=== PATIENT | female | born 1990 | race Caucasian/White ===

== ENCOUNTER 2019-07-04 10:01 | Emergency (ER) | payer BC, SELFPAY ==
--- NOTE | 2019-07-04 10:28 | ED.GENADULT ---
HPI - General Adult General Chief complaint: Upper Respiratory Infection Stated complaint: body aches/fever/sore throat Time Seen by Provider: 07/04/19 10:29 Source: patient Mode of arrival: ambulatory Limitations: no limitations History of Present Illness HPI narrative: 28-year-old female patient presents to the [facility] with complaints of cold symptoms that started yesterday. Patient states she has had body aches, fevers, runny nose, slight cough and just overall feeling very tired. Patient states she has had some nausea but she is currently 6 weeks . Patient states that she has not gotten a flu shot this year and has not yet met with her OB for her first appointment yet. Patient denies any vomiting or abdominal pain. Related Data Home Medications Medication Instructions Recorded Confirmed escitalopram oxalate 10 mg PO DAILY 07/04/19 07/04/19 vit-iron fum-folic ac 1 tablet PO DAILY 07/04/19 07/04/19 [ Vitamin] Allergies Allergy/AdvReac Type Severity Reaction Status Date / Time No Known Allergies Allergy Verified 07/04/19 10:27 Review of Systems Review of Systems: Narrative: CONSTITUTIONAL: Positive fever, body aches, chills, and sweats. EYES: Denies visual changes, redness, or discharge. ENT: Positive rhinorrhea, congestion, sore throat, denies otalgia. CARDIOVASCULAR: Denies chest pain, palpitations, or edema. RESPIRATORY: Positive cough, denies dyspnea. GASTROINTESTINAL: Denies abdominal pain, positive nausea, denies vomiting, or diarrhea. GENITOURINARY: Denies dysuria or hematuria. SKIN: Denies rash or itching. MUSCULOSKELETAL: Denies back pain, joint pain, or myalgia. NEUROLOGIC: Positive headache, denies numbness, or weakness. PSYCHIATRIC: Denies anxiety or depression. PMFSH Comments At the time of my signature I agree with nursing past medical history, surgical, social, and family history. There is no relevant family history pertinent to the presenting complaint. Exam Narrative: Exam Narrative: GENERAL: ill-appearing, well-nourished, and in no acute distress. HEAD: Normocephalic, atraumatic. No tenderness noted to frontal maxillary sinuses on palpation. EYES: PERRLA and EOMI. ENT: Nares with erythema and edema noted bilaterally, patent, no rhinorrhea or epistaxis. Mucous membranes moist. NECK: Supple. No lymphadenopathy CHEST: Clear to auscultation. No respiratory distress. HEART: Regular rate and rhythm. No murmur heard. Normal peripheral pulses. ABDOMEN: Soft, nontender, nondistended, normal active bowel sounds. EXTREMITIES: Normal range of motion. No edema. SKIN: Warm, dry, no rash. NEURO: No focal deficits. Alert and oriented x3. Course Vital Signs Vital signs: Vital Signs Temperature 37.6 C 07/04/19 10:29 Pulse Rate 116 H 07/04/19 10:29 Respiratory Rate 07/04/19 10:29 Blood Pressure 124/75 07/04/19 10:29 Pulse Oximetry 99 07/04/19 10:29 Temperature 37.6 C 07/04/19 10:29 Pulse Rate 116 H 07/04/19 10:29 Respiratory Rate 07/04/19 10:29 Blood Pressure 124/75 07/04/19 10:29 Pulse Oximetry 99 07/04/19 10:29 Vital signs reviewed. Medical Decision Making Differential Diagnosis Differential Diagnosis: Differential diagnosis: Allergic rhinitis, chronic sinusitis, tonsillitis, acute sinusitis, infectious mononucleosis, seasonal influenza, pertussis, diphtheria, meningococcal disease, viral syndrome, viral bronchitis, RSV. Notify patient that her influenza and strep are both negative today. Discussed with her that she can take [id number] Tylenol for her fevers aches and pains. Discussed with patient and did provide patient with a list of safe [id number] medications that she can try for her symptoms. Discussed with patient if she develops vomiting, abdominal pain or severe diarrhea that she would need to go to the ER for further evaluation and treatment. Patient verbalized understanding denies any other question
[2019-07-04 10:29] VITALS: BP 124/75; PULSE 116; RESP 20; TEMP 37.6; O2SAT 99
== END 2019-07-04 10:57 | disposition home or self-care (01) ==
PROVIDERS: Emergency Provider Nurse Practitioner Family
DX: O99.511 Diseases of the respiratory system complicating pregnancy, first trimester (principal); J06.9 Acute upper respiratory infection, unspecified; O99.89 Other specified diseases and conditions complicating pregnancy, childbirth and the puerperium; R05 Cough; Z3A.01 Less than 8 weeks gestation of pregnancy; O99.341 Other mental disorders complicating pregnancy, first trimester; F41.9 Anxiety disorder, unspecified; F32.9 Major depressive disorder, single episode, unspecified
CPT/HCPCS: 87081; 87804; 87880; 99213; G0463

== ENCOUNTER 2020-03-06 05:55 | Inpatient (IN) | payer BC, SELFPAY ==
[2020-03-06] VITALS (152 sets, daily range): BP systolic 76–196; BP diastolic 18–157; PULSE 47–292; RESP 16–18; TEMP 36.7–37.6; O2SAT 79–100; BMI 38.7
[2020-03-06] MEDS: LACTATED RINGERS 1,000 ML 125 ML IV CONT ×2 (06:55→10:00)
[2020-03-06] MEDS: ONDANSETRON INJ 4 MG/2 ML VIAL IV PUSH (07:02)
--- NOTE | 2020-03-06 07:15 | LDADM ---
This patient, Beth Calderón, was admitted to Labor/Delivery/Recovery 103 on 03/06/20 at 0605. Plans for labor, pain management and were discussed with patient. Patient/family oriented to hospital policies and general routines including ID bracelet, bed and alarms, visiting hours, pain management, procedures, bathroom and other care routines, personal items, smoking policy, room service/diet and guest tray routines, infant security routines, and visiting hours. Patient/Family are encouraged to report perceived risks to care and to ask questions if they do not understand what they are told or what they should do. See OBIX for further documentation.
[2020-03-06 07:26] LABS: Basophils Percent Auto 0.3 % (0.2-1.2); Eosinophils Absolute Auto 0.2 K/mm3 (0-0.3); Eosinophils Percent Auto 1.3 % (0-4.4); Hematocrit 32.9 % (37.0-47.0); Hemoglobin 10.8 g/dL (12.0-15.0); Immature Granulocyte Absolute 0.06 K/mm3 (0.00-0.031); Immature Granulocyte Percent A 0.5 % (0-0.5); Lymphocytes Absolute Auto 2.88 K/mm3 (0.9-3.2); Lymphocytes Percent Auto 24.1 % (18.3-44.2); Mean Corpuscular HGB Conc 32.8 g/dl (32-36); Mean Corpuscular Volume 79.3 fl (80-100); Mean Platelet Volume 9.9 fl (7.4-10.4); Monocytes Absolute Auto 0.6 K/mm3 (0.1-0.6); Monocytes Percent Auto 5.3 % (2.6-8.5); Neutrophils Absolute Auto 8.2 K/mm3 (1.3-6.7); Neutrophils Percent Auto 68.5 % (45.5-73.1); Platelet Count Result 280 k/mm3 (150-375); Red Blood Count 4.15 M/mm3 (4.2-5.4); Red Cell Distribution Width 14.6 % (11.5-14.5)
[2020-03-06] MEDS: OXYTOCIN 30 UNITS/NS 500 ML 30 UNITS/500 ML BAG IV CONT (07:30)
--- NOTE | 2020-03-06 07:35 | WPDOBADMIT ---
Obstetrics - Admit Note Admission Note: record reviewed. No pertinent additions to the history and/or any subsequent changes in the physical findings that are not consistent with the expected course of the were found. MIL at 41 weeks for term gestation, SVE 3cm, attempt at arom, tiny amount of fluid, will monitor Additions to the history and/or subsequent changes in the physical findings follow. None.
[2020-03-06 09:23] LABS: Rapid Plasma Reagin Non-Reactive (NonReactive)
--- NOTE | 2020-03-06 10:34 | P.PNAN_ITS ---
Anes - Eval Pre Procedure Procedure: Labor Epidural Date/Time: 03/06/20 10:34 Surgeon: Samy Preop Diagnosis: Labor Pain Pre Op Diagnosis: Induction of Labor Patient Data Age: 29 Gender: F Height: 5 ft 5 in Weight: 105.5 kg Last Vital Signs Temp 37.1 C 03/06/20 10:30 Pulse 89 03/06/20 10:33 Resp 18 03/06/20 07:30 BP 119/73 03/06/20 10:33 Pulse Ox 100 03/06/20 10:29 Allergies Allergy/AdvReac Type Severity Reaction Status Date / Time No Known Allergies Allergy Verified 07/04/19 10:27 Home Medications Medication Instructions Recorded Confirmed Type vit-iron fum-folic ac 1 tablet PO DAILY 07/04/19 03/06/20 History [ Vitamin] Laboratory Tests 03/06/20 03/06/20 03/06/20 07:14 07:14 07:14 WBC 12.0 K/mm3 H K/mm3 (4.5-10.0) RBC 4.15 M/mm3 L M/mm3 (4.2-5.4) Hgb 10.8 g/dL L g/dL (12.0-15.0) Hct 32.9 % L % (37.0-47.0) MCV 79.3 fl L fl (80-100) MCH 26.0 pg pg (26-34) MCHC 32.8 g/dl g/dl (32-36) RDW 14.6 % H % (11.5-14.5) Plt Count 280 k/mm3 k/mm3 (150-375) MPV 9.9 fl fl (7.4-10.4) Immature Gran % (Auto) 0.5 % % (0-0.5) Neut % (Auto) 68.5 % % (45.5-73.1) Lymph % (Auto) 24.1 % % (18.3-44.2) Ferry % (Auto) 5.3 % % (2.6-8.5) Eos % (Auto) 1.3 % % (0-4.4) Baso % (Auto) 0.3 % % (0.2-1.2) Lymph # (Auto) 2.88 K/mm3 K/mm3 (0.9-3.2) Ferry # (Auto) 0.6 K/mm3 K/mm3 (0.1-0.6) Eos # (Auto) 0.2 K/mm3 K/mm3 (0-0.3) Baso # (Auto) 0.0 K/mm3 K/mm3 (0.0-0.1) Abs Immat Gran (auto) 0.06 K/mm3 H K/mm3 (0.00-0.031) Absolute Neuts (auto) 8.2 K/mm3 H K/mm3 (1.3-6.7) Absolute Nucleated RBC 0.0 K/mm3 K/mm3 (0.0-0.012) Nucleated RBC % 0.0 % % (0.0-0.2) RPR Non-reactive (NonReactive) Blood Type O Positive Antibody Screen Negative : gestational age (AMILCAR 02/28/20) Patient hx anesthesia problems: none Family hx anesthesia problems: none PMFSH Family History Family History Other No pertinent family history in first degree relatives Social History Social History Smoking status: Never smoker Second hand tobacco smoke exposure: No Substance use: never Spiritual care concerns: No Exam Day of Procedure 03/06/20 10:34 Patient weight: obese Heart: regular rate and rhythm Lungs: normal air movement Airway: Mallampati scale class II Neurological: alert and oriented
[2020-03-06] MEDS: PHENYLEPHRINE 1,000 MCG/10 ML SYRINGE 100 MCG IV PUSH (11:52)
--- NOTE | 2020-03-06 12:23 | PM.OBPNLAB ---
Pain Control Date/time seen: 03/06/20 12:23 Pain control: epidural Pelvic Exam Dilation (cm): 6 Effacement (%): 70 station: -2 Amniotic membrane status: Ruptured
--- NOTE | 2020-03-06 14:01 | PM.OBPRVD ---
OB - Delivery Note Procedure Delivery date: 03/06/20 Procedure: Vaginal . events: Labor Induction Intrapartal events: None Induction method: AROM and per pitocin protocol Delivery monitor: external FHT and external uterine Route of delivery: Episiotomy description: None Laceration Description: None Specimen: No Estimated blood loss (mL): 35 Anesthesia type: Epidural Disposition: other () [place] Baby Date of : 03/06/20 Time of : 13:50 Weeks of gestation at delivery: 41 gender: Female Weight (pounds): 7 Weight (ounces): 7 presentation: vertex position: Left Occiput Anterior Placenta delivery description: Spontaneous cord vessel description: 3 Vessels, Nuchal Cord, True Knot (x2), Clamped/Cut and Delayed Cord Clamping score one minute: 9 score five minutes: 9 Narrative: Mother and baby in stable condition and skin to skin.
[2020-03-06] MEDS: OXYTOCIN 30 UNITS/NS 500 ML 30 UNITS/500 ML BAG 125 UNITS IV CONT (14:38)
--- NOTE | 2020-03-06 16:40 | OBPPTRN ---
Patient transferred to post room #284 via wheel chair( ). Support person present. Oriented to unit, room, information board, rooming in, admission packet and security measures. Patient verbalizes understanding.
[2020-03-06] MEDS: IBUPROFEN 600 MG TABLET PO ×2 (16:50→22:56)
[2020-03-06] MEDS: ACETAMINOPHEN 325 MG TABLET 650 MG PO (19:08)
[2020-03-07] MEDS: ACETAMINOPHEN 325 MG TABLET 650 MG PO ×3 (01:35→16:27)
[2020-03-07 05:55] LABS: Hematocrit 31.4 % (37.0-47.0); Hemoglobin 10.1 g/dL (12.0-15.0)
--- NOTE | 2020-03-07 07:27 | PM.OBPNVD ---
OB - PN: Subj Subjective Date/time seen: 03/07/20 07:27 Patient comments: no complaints baby status: doing well OB - PN: Obj Data Labs CBC & Chem 7: 03/07/20 04:45 Labs: Laboratory Results - last 24 hr 03/06/20 03/06/20 03/06/20 07:14 07:14 07:14 WBC 12.0 H RBC 4.15 L Hgb 10.8 L Hct 32.9 L MCV 79.3 L MCH 26.0 MCHC 32.8 RDW 14.6 H Plt Count 280 MPV 9.9 Immature Gran % (Auto) 0.5 Neut % (Auto) 68.5 Lymph % (Auto) 24.1 Humphreys % (Auto) 5.3 Eos % (Auto) 1.3 Baso % (Auto) 0.3 Lymph # (Auto) 2.88 Humphreys # (Auto) 0.6 Eos # (Auto) 0.2 Baso # (Auto) 0.0 Abs Immat Gran (auto) 0.06 H Absolute Neuts (auto) 8.2 H Absolute Nucleated RBC 0.0 Nucleated RBC % 0.0 RPR Non-reactive Blood Type O Positive Antibody Screen Negative 03/07/20 04:45 WBC RBC Hgb 10.1 L Hct 31.4 L MCV MCH MCHC RDW Plt Count MPV Immature Gran % (Auto) Neut % (Auto) Lymph % (Auto) Humphreys % (Auto) Eos % (Auto) Baso % (Auto) Lymph # (Auto) Humphreys # (Auto) Eos # (Auto) Baso # (Auto) Abs Immat Gran (auto) Absolute Neuts (auto) Absolute Nucleated RBC Nucleated RBC % RPR Blood Type Antibody Screen OB - PN A/P Plan day: 1 Plan: discharge home Time Spent With Patient Time: Total time spent is greater than 50% in coordination of care (as documented) at patient's floor/unit and/or counseling patient: Review of Systems Review of Systems: All systems reviewed & are unremarkable except as noted in HPI and below Exam Const: General: cooperative Nutritional Appearance: average body habitus Orientation/consciousness: patient oriented x3 Skin: General skin exam: normal color Neuro: General: patient oriented x3 Psych: Affect: normal affect Thought process: Normal thought process present
[2020-03-07 07:30] VITALS: BP 128/81; PULSE 83; RESP 18; TEMP 37; O2SAT 100
--- NOTE | 2020-03-07 07:30 | PC.NURSE ---
PT introductions made and plan of care discussed per post , pain management, breast feeding, daily care activities and pending discharge to home. PT verbalized understanding of such care.
[2020-03-07] MEDS: IBUPROFEN 600 MG TABLET PO ×2 (08:44→16:26)
[2020-03-07] MEDS: DOCUSATE SODIUM 100 MG CAPSULE PO ×2 (08:44→16:26)
[2020-03-07] MEDS: MULTIVIT/MIN/PREN/FOL AC/IRON TABLET 1 TAB PO (08:44)
[2020-03-07] MEDS: TETANUS,DIPHTHERIA,AC PERTUSSIS ADULT (0.5 ML) BOOSTRIX IM (08:46)
--- NOTE | 2020-03-07 09:44 | WPDANLDPN2 ---
Anes-Prog Note L&D Date/Time: 03/07/20 09:44 Comfortable throughout: labor and delivery Neuraxial method: epidural Neuro status: Neuro function grossly intact. Cardiovascular status: normal Respiratory status: normal Airway patency: baseline Mental status: baseline Post-Op hydration status: normal Vital Signs: Last Vital Signs Temp 36.9 C 03/06/20 19:45 Pulse 70 03/06/20 19:45 Resp 16 03/06/20 19:45 BP 128/69 03/06/20 19:45 Pulse Ox 100 03/06/20 19:45 Pain score (VAS): 0/0 I/O: Intake & Output 03/06/20 03/07/20 03/07/20 23:59 07:59 15:59 Intake Total 1250 Output Total 75 Balance 1175 Post-procedural complaints: none Patient feedback: Patient satisfied with anesthetic care.
--- NOTE | 2020-03-07 16:45 | PC.NURSE ---
PT received discharge instructions per protocol and verbalized understanding of such care
--- NOTE | 2020-03-07 17:17 | PC.NURSE ---
PT discharged to home ambulatory accompanied by spouse and and taken to waiting car. Follow up appts confirmed
--- NOTE | 2020-03-10 07:49 | PM.OBDSVD ---
DS: Admitting Diagnosis Admitting Diagnosis Admitting Diagnosis: Induction of Labor OB - DS: Summary OB Procedures : None OB Procedures Intrapartum: Spontaneous Vag Delivery OB Procedures: : None Time Spent with Patient Time attestation: Total time spent providing and/or coordinating discharge services: Discharge Plan Discharge Attending physician on discharge: Sandra Pablo Discharging Clinician: Kassandra Gonsales Patient Disposition: Home, Self-Care Activity: pelvic rest Diet: regular Discharge Instructions: Education: Mom and Baby Guide Given to: Mother Follow-Up: Call your delivering provider's office for an appointment to be seen in: 4 Weeks Mom and baby should come to the [facility] for the follow-up appointment. Appointment Date/Time: March 09, 2020 at 10:00 am What to expect at your follow-up visit: Blood Pressure Check Call [phone] if you are unable to keep your appointment time. BREAST CARE: * Wear a snug supportive bra. * For engorgement discomfort: Breast Feeding: * Apply warm moist washcloths * Express milk as needed to relieve engorgement * Wear loose clothing * For sore nipples: * Identify correct latch-on * Apply warm moist washcloths before and after nursing * Air dry nipples after nursing * May apply Lansinoh cream to nipples PERINEAL CARE: * Until bleeding stops, use your lynn bottle after urinating * Change your pad frequently throughout the day * You may take sitz baths several times a day (fill your bathtub with warm water and soak for 20 minutes.) Do NOT bathe in the water * No tub baths until seen by your physician - You may shower ACTIVITY: * Rest as much as possible. * Do not exercise or lift anything heavier than your baby (such as laundry or other children.) * Avoid stairs or driving as much as possible. * Do not put anything into the vagina. No douching, tampons, or sexual activity until seen by physician. NOTIFY PHYSICIAN IF YOU HAVE ANY QUESTIONS OR IF ANY OF THE FOLLOWING SYMPTOMS OCCUR: * If your perineum becomes red, swollen, or more painful than what you have experienced in the hospital. * If your vaginal bleeding becomes foul smelling. * If your vaginal bleeding becomes more heavy than a period or if your bleeding changes from pink to bright red. However, you may pass an occasional walnut-sized clot once or twice for the first week . * If you experience a sharp, shooting pain in you calves. * If you discover a hard, reddened area on your breast or if you experience flu-like symptoms. * If you have a fever of 100.4 or greater DIET: * Eat regular, well-balanced meals. * Drink plenty of fluids daily. If , drink to thirst. Patient Instructions: Antibiotic Form Stand Alone Forms: General Discharge Information Follow-up/Referrals: Kassandra Gonsales CNM [Certified Nurse Compensation Programs Manager] - 4 Weeks Discharge Medications: New acetaminophen [Mapap (acetaminophen)] 325 mg Tablet 650 mg PO Q6H PRN (Reason: Mild Pain (1-3) Or Headache) RF: 0 Dermoplast (with menthol) 20-0.5 % Aerosol 1 spray topical PRN PRN (Reason: Perineal Discomfort) RF: 0 docusate sodium 100 mg Capsule 100 mg PO BID PRN (Reason: Constipation) RF: 0 ibuprofen 600 mg Tablet 600 mg PO Q6H PRN (Reason: Cramping) RF: 0 Dlo-Y-Gaogjk Cream 1 applic topical PRN PRN (Reason: Sore Nipples) RF: 0 KPN Tablet 1 tab PO DAILY RF: 0 Preparation H (Witch Violetta) 50 % Pads, Medicated 1 pad topical PRN PRN (Reason: Perineal Discomfort) RF: 0 Discontinued Vitamin 27 mg iron- 0.8 mg Tablet 1 tablet PO DAILY RF: 0 Date of admission: 03/06/20 05:55 Primary Care Provider: PHYSICIAN,HOT DIE PRESS FEEDER Admitting Provider: Sandra Pablo Attending physician on admission: Sandra Pablo Condition: Stable
== END 2020-03-07 17:17 | disposition home or self-care (01) | DRG 807 ==
LOC: ANHLDR 06:13 → ANHOB2 16:44
PROVIDERS: Advanced Practice Midwife; Admitting Provider Obstetrics & Gynecology; Visit Provider Obstetrics & Gynecology
DX: O69.1XX0 Labor and delivery complicated by cord around neck, with compression, not applicable or unspecified (principal); Z37.0 Single live birth; Z3A.41 41 weeks gestation of pregnancy
CPT/HCPCS: 36415; 85014; 85018; 85025; 86592; 86850; 86900; 86901; 90715; A9270; J2370; J2405; J2590; J2795; J7120

== ENCOUNTER 2020-03-15 17:45 | Emergency (ER) | payer BC, SELFPAY ==
--- NOTE | ~2020-03-15 | CT_ITS ---
EXAMINATION: CT abdomen pelvis w con INDICATION: Lower abdominal pain and fever, nine days TECHNIQUE: Computed tomographic images of the abdomen and pelvis were obtained after the administrati on of 100 cc of Omnipaque 350 intravenous contrast. The dose-length product (DLP) was 887.36 mGy-cm. Automated exposure control and iterative reconstruction technique were employed. COMPARISON: None available FINDINGS: Minimal dependent atelectasis is present in the lung bases. The heart size is normal. Calci fied nodules of the right middle lobe are consistent with old granulomatous disease. The liver, pancr eas, gallbladder, and adrenal glands are normal. There is mild splenomegaly. The kidneys are unremark able. No pathologically enlarged abdominal or pelvic lymph nodes are identified. There is no free int raperitoneal gas or evidence of bowel obstruction. There is mixed attenuation fluid in the endometria l cavity. There is a small fat-containing umbilical hernia. IMPRESSION: 1. No CT correlate for the patient's symptoms. 2. Mixed attenuation fluid in the endometrial cavity. Recommend clinical correlation for any signs of endometritis or retained products as CT findings are within normal range of findings nine days postp artum. Reviewed, dictated and finalized at location A. [facility] IMPRESSION: 1. No CT correlate for the patient's symptoms. 2. Mixed attenuation fluid in the endometrial cavity. Recommend clinical correl ation for any signs of endometritis or retained products as CT findings are wit hin normal range of findings nine days .
[2020-03-15 17:47] VITALS: BP 135/86; PULSE 102; RESP 20; TEMP 36.6; O2SAT 98
--- NOTE | 2020-03-15 18:36 | ED.FEVER ---
HPI - Fever General Chief Complaint: Fever Stated Complaint: 9 days , fever Time Seen by Provider: 03/15/20 18:00 Source: patient Mode of arrival: ambulatory Limitations: no limitations History of Present Illness HPI Narrative: This is a 29 year old female that presents to the ER for fever. Reports she had a normal vaginal delivery 9 days ago. Reports this morning she woke up and had fever, chills. Also reports myalgias. Reports some lower abdominal discomfort. Also reports dysuria. Denies congestion, cough, sore throat, chest pain, shortness of breath, vomiting, or diarrhea. Related Data Allergies Allergy/AdvReac Type Severity Reaction Status Date / Time No Known Allergies Allergy Verified 07/04/19 10:27 Review of Systems Review of Systems: Narrative: CONSTITUTIONAL: Reports fever, chills ENT: Denies rhinorrhea, congestion, sore throat CARDIOVASCULAR: Denies chest pain RESPIRATORY: Denies cough or dyspnea. GASTROINTESTINAL: Reports abdominal pain. Denies nausea, vomiting, or diarrhea. GENITOURINARY: Reports dysuria All systems reviewed & are unremarkable except as noted in HPI and below PMFSH Family History Family History Other No pertinent family history in first degree relatives Social History Social History Smoking status: Never smoker Second hand tobacco smoke exposure: No Substance use: never Spiritual care concerns: No Exam Narrative: Exam Narrative: GENERAL: Well-appearing, well-nourished, and in no acute distress. HEAD: Normocephalic, atraumatic. EYES: EOMI. ENT: Nares clear, no rhinorrhea or epistaxis. Mucous membranes moist. Oropharynx without tonsillar hypertrophy exudate or other lesions. Bilateral TMs pearly friedman non-bulging NECK: Supple. No adenopathy or masses. CHEST: Clear to auscultation. No respiratory distress. No wheezes rales or rhonchi HEART: Regular rate and rhythm. No murmur heard. Normal peripheral pulses. ABDOMEN: Soft, nondistended, normal active bowel sounds. Tender to palpation of the midline lower abdomen, without guarding EXTREMITIES: Normal range of motion. No edema. SKIN: Warm, dry, no rash. NEURO: No focal deficits. Alert and oriented x3. PSYCH: Normal mood and affect PELVIC: Small amount of blood and yellow discharge present in the vaginal vault Course Vital Signs Vital signs: Vital Signs Temperature 97.8 F 03/15/20 17:47 Pulse Rate 102 H 03/15/20 17:47 Respiratory Rate 20 03/15/20 17:47 Blood Pressure 135/86 03/15/20 17:47 Pulse Oximetry 98 03/15/20 17:47 Temperature 97.1 F L 03/15/20 19:01 Pulse Rate 83 03/15/20 21:17 Respiratory Rate 18 03/15/20 21:17 Blood Pressure 134/95 H 03/15/20 21:17 Pulse Oximetry 99 03/15/20 21:17 MDM - Fever MDM Narrative Medical decision making narrative: Patient presents the emergency department for lower abdominal discomfort and fever. She is 9 days from a vaginal delivery. Afebrile and nontoxic-appearing in the ED. CBC with mild leukocytosis to 10.1. Metabolic panel and lipase are without concerning findings. UA with possible infection. This will go for culture. Lactic acid is not elevated. CT scan of the abdomen and pelvis is within normal limits 9 days , recommend clinical correlation for endometritis. Patient does have some abnormal discharge on exam and uterine tenderness. Will be given first dose of antibiotics IV and sent home on oral antibiotics. Spoke with Dr. Pablo about patient work-up will follow-up in clinic. Patient is stable and felt appropriate for further outpatient evaluation. She was given warnings to return to the ER Lab Data Attestation: I reviewed the patient's lab results. Result diagrams: 03/15/20 18:48 03/15/20 18:48 Labs: Lab Results 03/15/20 03/15/20 03/15/20 Range/Units 18:48 18:48 18:48 WB
[2020-03-15 18:57] LABS: Basophils Percent Auto 0.4 % (0.2-1.2); Eosinophils Absolute Auto 0.1 K/mm3 (0-0.3); Hemoglobin 12.3 g/dL (12.0-15.0); Immature Granulocyte Absolute 0.05 K/mm3 (0.00-0.031); Immature Granulocyte Percent A 0.5 % (0-0.5); Lymphocytes Absolute Auto 1.77 K/mm3 (0.9-3.2); Lymphocytes Percent Auto 17.6 % (18.3-44.2); Mean Corpuscular HGB Conc 33.2 g/dl (32-36); Mean Corpuscular Hemoglobin 26.7 pg (26-34); Mean Corpuscular Volume 80.3 fl (80-100); Monocytes Absolute Auto 0.6 K/mm3 (0.1-0.6); Monocytes Percent Auto 5.9 % (2.6-8.5); Neutrophils Absolute Auto 7.5 K/mm3 (1.3-6.7); Neutrophils Percent Auto 74.6 % (45.5-73.1); Platelet Count Result 301 k/mm3 (150-375); Red Blood Count 4.61 M/mm3 (4.2-5.4); Red Cell Distribution Width 14.8 % (11.5-14.5); White Blood Count 10.1 K/mm3 (4.5-10.0)
[2020-03-15 19:01] VITALS: BP 124/89; PULSE 97; RESP 18; TEMP 36.2; O2SAT 98
--- NOTE | 2020-03-15 19:01 | PC.NURSE ---
Commode in room for patient to provide urine.
[2020-03-15 19:07] LABS: Prothrombin Time 13.6 Seconds (11.1-14.7)
[2020-03-15 19:08] LABS: Partial Thromboplastin Time 31.6 SECONDS (22.3-36.8)
[2020-03-15 19:11] LABS: Lactic Acid Reflex 1.2 mmol/L (0.7-2.1)
[2020-03-15 19:18] LABS: Alanine Aminotransferase 16 U/L (4-35); Albumin Level 3.8 g/dL (3.5-5.1); Alkaline Phosphatase 109 U/L (38-126); Anion Gap 9 mmol/L (8-16); Aspartate Amino Transferase 20 U/L (14-36); Bilirubin,Total 0.2 mg/dL (0.2-1.3); Blood Urea Nitrogen 9 mg/dL (7-17); CRP 5.3 mg/dL (<1.0); Calcium 8.9 mg/dL (8.4-10.2); Carbon Dioxide 23 mmol/L (22-30); Chloride 107 mmol/L (98-107); Estimated CRCL calculation 139 ml/min; Estimated Glomerular Filt Rate > 60; Glucose 116 mg/dL (65-105); Lipase 94 U/L (23-300); Potassium 3.4 mmol/L (3.4-5.0); Sodium 139 mmol/L (137-145)
[2020-03-15] MEDS: SODIUM CHLORIDE 0.9% IV 1,000 ML 999 ML IV CONT (19:19)
[2020-03-15 19:33] LABS: Add Urine Microscopic? YES; Appearance Urine Cloudy (Clear); Bilirubin Urine Negative (Negative); Blood Urine 3+ (Negative); Color Urine Yellow (Yellow); Glucose Urine UA Negative (Negative); Ketones Urine Negative (Negative); Leukocyte Esterase Ur 2+ LEU/UL (Negative); Mucus Urine Few /lpf; Nitrate Urine Negative (Negative); Protein Urine 1+ mg/dL (Negative); Specific Grav Ur 1.026 (1.001-1.035); Squamous Epithelial Cell Urine Moderate /hpf (Few); Urobilinogen Urine Negative mg/dL (<2.0); WBC Urine 31-50 /hpf
--- NOTE | 2020-03-15 19:56 | PC.NURSE ---
Patient being taken to CT.
[2020-03-15 21:17] VITALS: BP 134/95; PULSE 83; RESP 18; O2SAT 99
[2020-03-15] MEDS: CLINDAMYCIN 900 MG/D5W 50 ML 900 MG/50 ML PIGGYBACK 50 MG IVPB (21:28)
--- NOTE | 2020-03-15 22:21 | PC.NURSE ---
Patient informed of gentamycin passing through to breast milk. Patient states she will pump and dump for the next 24 hours.
[2020-03-15 23:27] VITALS: BP 148/91; PULSE 60; RESP 18; TEMP 36.7; O2SAT 98
== END 2020-03-15 23:29 | disposition home or self-care (01) ==
PROVIDERS: Physician Assistant; Emergency Provider Emergency Medicine
DX: O86.12 Endometritis following delivery (principal)
CPT/HCPCS: 36415; 74177; 80053; 81001; 81025; 83605; 83690; 85025; 85610; 85730; 86140; 87040; 87070; 87086; 87088; 96361; 96365; 96375; 99284; J0131; J1580; J7030; Q9967

== ENCOUNTER 2020-04-17 11:44 | Outpatient (CLI) | payer BC, SELFPAY ==
--- NOTE | ~2020-04-17 | US_ITS ---
US breast RT limited INDICATION: Right breast pain. Mastitis. TECHNIQUE: Dedicated right breast ultrasound COMPARISON: No prior studies for comparison. FINDINGS: The right breast is composed of normal heterogeneous echotexture without focal solid or cys tic mass. IMPRESSION: 1: Normal right breast ultrasound. BI-RADS CATEGORY 1 - NEGATIVE Reviewed, dictated and finalized at location A. PROCESSING TECHNICIAN
== END 2020-04-17 11:45 | disposition home or self-care (01) ==
PROVIDERS: Visit Provider Obstetrics & Gynecology
DX: N64.4 Mastodynia (principal)
CPT/HCPCS: 76642

== ENCOUNTER 2023-02-22 09:36 | Outpatient (CLI) | payer BC, SELFPAY ==
--- NOTE | 2023-02-22 09:42 | ECHO_ITS ---
Patient Info Name: Beth Calderón Age: 32 years : 1990 Gender: Female Ht: 66 in Wt: 205 lbs BSA: 2.12 m2 HR: 82 bpm BP: 144 / 96 mmHg Heart Rhythm: Sinus Rhythm Technical Quality: Good Exam Date: 02/22/2023 10:20 AM Exam Location: [facility] Patient Status: Outpatient Admit Date: 02/22/2023 Staff Ordering Physician: Sana Seals PA-C Peace Officer: Allison Kincaid RDCS Attending Provider: Sana Seals PA-C Referring Physician: Bozena FISCHER; Exam Type: CA echo doppler color flow Study Info Indications R07.9 - Chest pain, unspecified Complete two-dimensional, color flow and Doppler transthoracic echocardiogram is performed. Summary 1. Complete two-dimensional, color flow and Doppler transthoracic echocardiogram is performed. 2. Left ventricular chamber dimension is normal. 3. Left ventricular systolic function is normal, estimated at 60-65%. 4. The left ventricular diastolic function is normal. 5. E/e' 8 is minimally elevated. 6. Left atrial chamber dimension is mildly enlarged. 7. There is mild mitral valve regurgitation. 8. There is trace tricuspid valve regurgitation. 9. No pulmonary hypertension, estimated pulmonary arterial systolic pressure is 23 mmHg. 10. There is trace pulmonic regurgitation. Left Ventricle E/e' 8 is minimally elevated. Left ventricular chamber dimension is normal. Left ventricular systolic function is normal, estimated at 60-65%. The left ventricular diastolic function is normal. Right Ventricle Right ventricular systolic function is normal and with normal TAPSE 2.8 cm. Right ventricular chamber dimension is normal. Left Atria Left atrial chamber dimension is mildly enlarged. Right Atria Right atrial chamber dimension is normal. Aortic Valve The aortic valve is trileaflet. There is no aortic valve stenosis. There is no aortic valve regurgitation. Pulmonic Valve There is trace pulmonic regurgitation. Mitral Valve There is no mitral valve stenosis. There is mild mitral valve regurgitation. Tricuspid Valve There is trace tricuspid valve regurgitation. No pulmonary hypertension, estimated pulmonary arterial systolic pressure is 23 mmHg. Pericardium/Pleural There is no pericardial effusion. Inferior Vena Cava Normal inferior vena cava with >50% collapse upon inspiration consistent with normal right atrial pressure, 5 mmHg. Aorta The aortic root size at the sinus of Valsalva is normal. Left Ventricular Outflow Tract Name Value Normal LVOT 2D LVOT Diameter 2.0 cm LVOT Doppler LVOT Peak Gradient 4 mmHg LVOT Mean Gradient 2 mmHg LVOT VTI 19 cm LVOT VTI/AV VTI Ratio 0.8 LVOT Stroke Volume 61 ml LVOT CO 4.0 l/min LVOT CI 1.9 l/min/m2 Pulmonic Valve Name Value Normal RVOT Doppler
== END 2023-02-22 09:37 | disposition home or self-care (01) ==
PROVIDERS: Visit Provider Physician Assistant Medical
DX: R07.9 Chest pain, unspecified (principal); I51.7 Cardiomegaly
CPT/HCPCS: 93306